=== PATIENT | male | born 1945 | race Caucasian/White ===

== ENCOUNTER 2017-07-06 07:09 | Day surgery (SDC) | payer MEDICARE ==
[~2017-07-06] VITALS: Ht 170.2 cm; Wt 99.2 kg
[~2017-07-06 07:09] MED LIST: HYDR1TAB94 PO; LISINOPRIL; NAPR220 PO; NAPR500 PO; Prednisone20 MG PO; ZESTORETIC 20-121 EA PO
[2017-07-06] MEDS ORDERED: LORA1SY PO (08:16)
== END 2017-07-06 09:50 | disposition home or self-care (01) ==
LOC: ORSCSDS 07:09
PROVIDERS: Internal Medicine Gastroenterology
PROC: 0DBN8ZX Excision of Sigmoid Colon, Via Natural or Artificial Opening Endoscopic, Diagnostic (ICD-10-PCS; principal; 2017-07-06 08:45)
DX: Z12.11 Encounter for screening for malignant neoplasm of colon (principal); K63.5 Polyp of colon; K57.30 Diverticulosis of large intestine without perforation or abscess without bleeding; K64.8 Other hemorrhoids; Z86.010 Personal history of colon polyps; I10 Essential (primary) hypertension; Z87.891 Personal history of nicotine dependence; Z79.899 Other long term (current) drug therapy
CPT/HCPCS: 88305; J7120

== ENCOUNTER 2018-03-19 23:18 | Emergency (ER) | payer MEDICARE ==
[~2018-03-19] VITALS: Ht 170.2 cm; Wt 96.2 kg
[~2018-03-19 23:18] MED LIST changes: +LORA1SY PO
[2018-03-20] MEDS ORDERED: Cephalexin500 MG PO (00:04)
[2018-03-20] MEDS ORDERED: Naprosyn500 MG PO (00:04)
[2018-03-20] MEDS ORDERED: Percocet 5-3251 EACH PO (00:04)
== END 2018-03-20 00:14 | disposition home or self-care (01) ==
LOC: ER 23:18
DX: M19.042 Primary osteoarthritis, left hand (principal); M10.9 Gout, unspecified; M81.0 Age-related osteoporosis without current pathological fracture; Z96.652 Presence of left artificial knee joint; Z87.891 Personal history of nicotine dependence; Z79.899 Other long term (current) drug therapy
CPT/HCPCS: 99283